=== PATIENT | male | born 1975 | race Caucasian/White ===

== ENCOUNTER 2018-09-13 21:43 | Emergency (ER) | payer OTHER ==
[~2018-09-13] VITALS: Ht 162.6 cm; Wt 90.7 kg
[2018-09-13] MEDS ORDERED: FAMOTIDINE10 MG PO (22:02)
[2018-09-13 22:35] LABS: HEMOGLOBIN 11.7 gm/dL (14.0-18.0); MCH 20.4 pg (26.0-34.0); MCHC 32.6 g/dL (28.0-37.0); MCV 62.6 fL (80.0-100.0); PLATELET COUNT 251 thou/uL (150-400); RBC 5.76 mil/uL (4.50-6.00); RDW 14.4 % (10.5-14.5); WBC 7.4 thou/uL (4.0-11.0)
[2018-09-13 22:38] LABS: ANION GAP 11 mmol/L (7-16); BUN 13 mg/dL (7-18); CHLORIDE 103 mmol/L (98-107); CO2 26 mmol/L (21-32); GLUCOSE 131 mg/dL (74-106); POTASSIUM 3.7 mmol/L (3.5-5.1); SODIUM 140 mmol/L (136-145)
[2018-09-13 22:45] LABS: TROPONIN-I <0.06 ng/mL (<0.06)
[2018-09-13 23:22] LABS: ABSOLUTE NEUTROPHILS 3.4 thou/uL (1.4-8.2)
[2018-09-13 23:24] LABS: ANISOCYTOSIS 1+; HYPOCHROMASIA 3+; MICROCYTES 3+; PLATELET ESTIMATE NORMAL; POLYCHROMASIA 1+
[2018-09-13 23:50] VITALS: BP 159/80
--- NOTE | 2018-09-15 07:48 | EKG ---
[address] [address] ELECTROCARDIOGRAM REPORT Name: OTIS HUBBARD Room #: DEP [place]#: [id number] ������������������ Admission: 09/13/18 ������������������ Attend Phys: Discharge: 09/13/18 ������������������ Date of : 71 Report #: [id number] ����������������������������������������������������������������� [id number] THIS REPORT FOR: //name// [facility] ED Test Date: 2018-09-13 Test Time: 21:49:02 Pat Name: OTIS HUBBARD Department: Room: Gender: M Edi Programmer: [place] : 1975 Requested By: Sourav Pierre Order Number: [id number] MD: Venkatesh Baca Measurements Intervals [place] Rate: 70 P: 27 UT: 127 QRS: 61 QRSD: 89 T: 18 QT: 409 QTc: 442 Interpretive Statements Sinus rhythm Normal tracing No previous ECG available for comparison Electronically Signed On 09-15-2018 7:48:15 CDT by Venkatesh Baca [email or web address] ��������������������������������������������� <ELECTRONICALLY SIGNED> ���������������������������������������� By: Venkatesh Baca MD, [facility] ��������������������������������������������� 09/15/18 [id number] Venkatesh Baca MD, FACC /EPI
== END 2018-09-13 23:53 | disposition home or self-care (01) ==
LOC: ER 21:43
PROVIDERS: Emergency Medicine
DX: R07.89 Other chest pain (principal); F17.210 Nicotine dependence, cigarettes, uncomplicated; Z88.5 Allergy status to narcotic agent